=== PATIENT | female | born 1950 | race Caucasian/White ===

== ENCOUNTER → 2018-10-09 | Outpatient (CLI) | payer OTHER ==
--- NOTE | 2018-10-10 16:34 | P ---
[facility] [place] [address] PROCEDURE REPORT Name: NEDA BLAND Room #: REG [facility]#: [id number] Admission: 10/09/18 ������������������ Attend Phys: Tommy Bang MD Discharge: ������������������ Date of : 50 Report #: [id number] THIS REPORT FOR: //name// CC: Tommy Pastor MD OUTPATIENT UPPER ENDOSCOPY REPORT BRIEF HISTORY: The patient is a 67-year-old woman with chronic nausea and occasional vomiting. History is significant for use of hydrocodone 10/325 every 4 hours daily as well as diabetes, requiring insulin. She also has intermittent dysphagia, primarily for pills. PREOPERATIVE DIAGNOSES: Nausea and dysphagia. POSTOPERATIVE DIAGNOSES: 1. Diffuse gastritis with bile staining. 2. Small hiatus hernia. 3. Dysphagia for pills. MEDICATIONS: Deep sedation with propofol per Anesthesia. SPECIMEN: None. ESTIMATED BLOOD LOSS: None. PROCEDURE: EGD and Lozano dilation. FINDINGS: Prior to propofol sedation, procedure of upper endoscopy was discussed with the patient as well potential risks and its complications. She indicates she understands and desires to proceed. DESCRIPTION OF PROCEDURE: With the patient in the supine position, with her head raised about 30 degrees, the Olympus video endoscope was inserted in the cervical esophagus under direct vision without difficulty. Examination of this organ through its entire length revealed normal esophageal mucosa down the squamocolumnar junction. Squamocolumnar junction was inspected and noted to be unremarkable. Intermittently, a small 2-cm sliding-type hiatus hernia was seen. There was no evidence of Neil mucosa. She has had some dysphagia. There was no evidence of stricture or ring. The scope was advanced in the stomach, which was examined on end views as well as retroflexed views. There was a pattern of diffuse gastritis with moderate erythema in the antrum of the stomach. No ulcers or erosions were seen. There was diffuse bile staining. Upon retroflexion, no mass lesions were seen. The pylorus, duodenal bulb and postbulbar duodenal sweep were all inspected and noted to be unremarkable. There was no evidence of strictures. At that point, scope was slowly withdrawn [facility] [address] [place] [address] PROCEDURE REPORT Name: NEDA BLAND Room #: REG [facility].#: [id number] Admission: 10/09/18 ������������������ Attend Phys: Tommy Bagn MD Discharge: ������������������ Date of : 50 Report #: [id number] and careful circumferential views were obtained. It was noted she does have gastritis and biopsies in the past were negative for H. pylori and those were not repeated today. In addition, in view of her diabetes, there was no endoscopic evidence of gastroparesis with retained solids within the stomach. Scope was withdrawn. The patient tolerated the procedure well. Subsequently, she was dilated with passage of a 50-Pal[place] Lozano dilator. There was no resistance. CONDITION OF THE PATIENT UPON DISCHARGE: Following the procedure, the patient was drowsy and will be discharged home when fully ambulatory. INSTRUCTIONS TO THE PATIENT AND FAMILY AT THE TIME OF DISCHARGE: She has had chronic nausea. The major culprit is likely the hydrocodone, especially in view of her history of diabetes. She does get relief from Zofran. It is noted she is on a multitude of medications. The use of Zofran would be reasonable. If a prokinetic is thought to be necessary, erythromycin may be a choice. A transdermal scopolamine patch may be an option as well. It is noted she is on twice daily Nexium. She may attempt to reduce the Nexium to once daily and thereafter, if she does well, to an as-needed basis. She is to return for dilation of esophagus on an as-needed basis regarding dysphagia. ��������������������������������������������� <ELECTRONICALLY SIGNED> ���������������������������������������� By: Tommy Bang MD ��������������������������������������������� 10/10/18 1634 [id number] Tommy Bang MD /nt
== END | disposition home or self-care (01) ==
LOC: GI 08:23
DX: K29.70 Gastritis, unspecified, without bleeding (principal); K44.9 Diaphragmatic hernia without obstruction or gangrene; R13.19 Other dysphagia; E11.9 Type 2 diabetes mellitus without complications; Z79.4 Long term (current) use of insulin; Z79.891 Long term (current) use of opiate analgesic
CPT/HCPCS: 62110; 62900

== ENCOUNTER 2018-10-22 12:28 | Emergency (ER) | payer OTHER ==
[~2018-10-22] VITALS: Ht 162.6 cm; Wt 108.0 kg
[2018-10-22] MEDS ORDERED: BUSPIRONE HCL15 MG PO (13:15)
[2018-10-22] MEDS ORDERED: NORCO 10-325 T1 EACH PO (13:15)
[2018-10-22] MEDS ORDERED: SYNTHROID100 MC1 PO (13:15)
[2018-10-22] MEDS ORDERED: TRANSDERM-SCOP1 EACH TD (13:15)
[2018-10-22 14:37] LABS: URINE BILIRUBIN NEGATIVE (Negative); URINE BLOOD NEGATIVE (Negative); URINE CLARITY CLEAR; URINE COLOR YELLOW; URINE GLUCOSE-RANDOM* NEGATIVE (Negative); URINE KETONES NEGATIVE (Negative); URINE LEUKOCYTES-REFLEX NEGATIVE (Negative); URINE NITRITE-REFLEX NEGATIVE (Negative); URINE PROTEIN (DIPSTICK) NEGATIVE (Negative); URINE SPECIFIC GRAVITY 1.015 (1.005-1.035); URINE UROBILINOGEN 0.2 E.U./dl (0.2-1.0)
[2018-10-22 15:25] LABS: ABSOLUTE NEUTROPHILS 3.5 thou/uL (1.4-8.2); BASOPHILS 0.6 % (0.0-2.0); EOSINOPHILS 1.6 % (0.0-3.0); HEMATOCRIT 36.8 % (37.0-47.0); HEMOGLOBIN 11.8 gm/dL (12.0-15.0); LYMPHOCYTES 26.6 % (24.0-44.0); MCHC 32.2 g/dL (28.0-37.0); MONOCYTES 6.2 % (1.0-8.0); PLATELET COUNT 200 thou/uL (150-400); RBC 4.23 mil/uL (4.20-5.00); WBC 5.5 thou/uL (4.0-11.0)
[2018-10-22 15:38] LABS: ANION GAP 6 mmol/L (7-16); BUN 15 mg/dL (7-18); CALCIUM 9.3 mg/dL (8.5-10.1); CHLORIDE 103 mmol/L (98-107); CO2 29 mmol/L (21-32); CREATININE 0.7 mg/dL (0.6-1.0); GLUCOSE 117 mg/dL (74-106); POTASSIUM 3.6 mmol/L (3.5-5.1); SODIUM 138 mmol/L (136-145)
[2018-10-22 15:48] LABS: ALBUMIN 3.2 g/dL (3.4-5.0); LIPASE 63 U/L (73-393); SGOT 19 U/L (15-37); SGPT 25 U/L (30-65); TOTAL BILIRUBIN 0.5 mg/dL (<0.1-1.0); TOTAL PROTEIN 6.6 g/dL (6.4-8.2); TROPONIN-I <0.06 ng/mL (<0.06)
[2018-10-22] MEDS ORDERED: METRONIDAZOLE500 M4 PO (16:59)
[2018-10-22] MEDS ORDERED: CIPRO500 MG PO (16:59)
[2018-10-22 17:05] VITALS: BP 148/76
== END 2018-10-22 17:05 | disposition home or self-care (01) ==
LOC: ER 12:28
PROVIDERS: Physician Assistant
DX: R19.7 Diarrhea, unspecified (principal); R10.84 Generalized abdominal pain; R11.0 Nausea; E11.9 Type 2 diabetes mellitus without complications; M79.7 Fibromyalgia; I10 Essential (primary) hypertension; E78.00 Pure hypercholesterolemia, unspecified; Z98.51 Tubal ligation status; Z90.710 Acquired absence of both cervix and uterus; Z88.1 Allergy status to other antibiotic agents; Z79.899 Other long term (current) drug therapy; Z90.49 Acquired absence of other specified parts of digestive tract

== ENCOUNTER → 2018-12-26 | Outpatient (CLI) | payer OTHER ==
[~2018-12-26] MED LIST: ALLOPURINOL 10100 M3 PO; ASA81BEC PO; BUSPIRONE HCL15 MG PO; CARVEDILOL12.5 MG PO; CIPRO500 MG PO; DULERA 200 MCG/13 GM INH; ENALAPRIL MALEA20 MG PO; FISH OIL 1,001000 M3 PO; IPRAT-ALBUT 0.5-3 ML INH; LIPITOR40 MG PO; METRONIDAZOLE500 M4 PO; NEURONTIN600 MG PO; NEXIUM 40 MG CA40 M1 PO; NORCO 10-325 T1 EACH PO; PROAIR HFA8.5 GM INH; PROBIOTIC1 EAC7 PO; SERTRALINE HCL25 MG PO; SYNTHROID100 MC1 PO; TOUJEO SOL300 UNIT/1 SUBQ; TRANSDERM-SCOP1 EACH TD; TRIAMCINOLONE 080 G3 TOP; VITAMIN D31000 UNIT PO; ZYRTEC10 M5 PO
== END ==
LOC: BC 09:54 → ULTRA 09:54
DX: N63.20 Unspecified lump in the left breast, unspecified quadrant (principal); E04.1 Nontoxic single thyroid nodule

== ENCOUNTER 2019-01-13 16:14 | Emergency (ER) | payer OTHER ==
[~2019-01-13] VITALS: Ht 152.4 cm; Wt 109.3 kg
[~2019-01-13 16:14] MED LIST changes: -ALLOPURINOL 10100 M3 PO; -ASA81BEC PO; -CARVEDILOL12.5 MG PO; -DULERA 200 MCG/13 GM INH; -ENALAPRIL MALEA20 MG PO; -FISH OIL 1,001000 M3 PO; -IPRAT-ALBUT 0.5-3 ML INH; -LIPITOR40 MG PO; -NEURONTIN600 MG PO; -NEXIUM 40 MG CA40 M1 PO; -PROAIR HFA8.5 GM INH; -PROBIOTIC1 EAC7 PO; -SERTRALINE HCL25 MG PO; -TOUJEO SOL300 UNIT/1 SUBQ; -TRIAMCINOLONE 080 G3 TOP; -VITAMIN D31000 UNIT PO; -ZYRTEC10 M5 PO
[2019-01-13 17:04] LABS: URINE BLOOD NEGATIVE (Negative); URINE CLARITY CLEAR; URINE COLOR YELLOW; URINE GLUCOSE-RANDOM* NEGATIVE (Negative); URINE KETONES NEGATIVE (Negative); URINE LEUKOCYTES-REFLEX NEGATIVE (Negative); URINE NITRITE-REFLEX NEGATIVE (Negative); URINE PROTEIN (DIPSTICK) NEGATIVE (Negative); URINE SPECIFIC GRAVITY 1.025 (1.005-1.035); URINE UROBILINOGEN 0.2 E.U./dl (0.2-1.0)
[2019-01-13 17:06] LABS: ICTOTEST (BILI CONFIRMATORY) Negative (Negative); URINE BILIRUBIN NEGATIVE (Negative)
[2019-01-13] MEDS ORDERED: ASA81BEC PO (18:17)
[2019-01-13] MEDS ORDERED: CARVEDILOL12.5 MG PO (18:18)
[2019-01-13] MEDS ORDERED: NEXIUM 40 MG CA40 M1 PO (18:18)
[2019-01-13] MEDS ORDERED: ENALAPRIL MALEA20 MG PO (18:19)
[2019-01-13] MEDS ORDERED: NEURONTIN600 MG PO (18:19)
[2019-01-13] MEDS ORDERED: SERTRALINE HCL25 MG PO (18:20)
[2019-01-13] MEDS ORDERED: LIPITOR40 MG PO (18:22)
[2019-01-13] MEDS ORDERED: ALLOPURINOL 10100 M3 PO (18:22)
[2019-01-13] MEDS ORDERED: VITAMIN D31000 UNIT PO (18:23)
[2019-01-13] MEDS ORDERED: FISH OIL 1,001000 M3 PO (18:23)
[2019-01-13] MEDS ORDERED: PROBIOTIC1 EAC7 PO (18:24)
[2019-01-13] MEDS ORDERED: TOUJEO SOL300 UNIT/1 SUBQ (18:25)
[2019-01-13] MEDS ORDERED: TRIAMCINOLONE 080 G3 TOP (18:26)
[2019-01-13] MEDS ORDERED: PROAIR HFA8.5 GM INH ×2 (18:26→18:27)
[2019-01-13] MEDS ORDERED: DULERA 200 MCG/13 GM INH (18:27)
[2019-01-13] MEDS ORDERED: IPRAT-ALBUT 0.5-3 ML INH (18:28)
[2019-01-13] MEDS ORDERED: ZYRTEC10 M5 PO (18:29)
[2019-01-13 18:40] LABS: EOSINOPHILS 3.8 % (0.0-3.0); HEMATOCRIT 34.7 % (37.0-47.0); HEMOGLOBIN 11.2 gm/dL (12.0-15.0); MCH 28.8 pg (26.0-34.0); MCHC 32.4 g/dL (28.0-37.0); MCV 88.9 fL (80.0-100.0); MONOCYTES 7.3 % (1.0-8.0); PLATELET COUNT 156 thou/uL (150-400); POLYS 56.9 % (36.0-66.0); RDW 15.7 % (10.5-14.5); WBC 5.3 thou/uL (4.0-11.0)
[2019-01-13 18:49] LABS: CALCIUM 8.7 mg/dL (8.5-10.1); CREATININE 0.8 mg/dL (0.6-1.0); POTASSIUM 3.6 mmol/L (3.5-5.1)
[2019-01-13 18:55] LABS: ALBUMIN 3.3 g/dL (3.4-5.0); TOTAL BILIRUBIN 0.3 mg/dL (<0.1-1.0); TOTAL PROTEIN 6.4 g/dL (6.4-8.2)
[2019-01-13 20:27] VITALS: BP 133/65
== END 2019-01-13 20:28 | disposition home or self-care (01) ==
LOC: ER 16:14
PROVIDERS: Nurse Practitioner Family
DX: S80.211A Abrasion, right knee, initial encounter (principal); S80.212A Abrasion, left knee, initial encounter; R19.7 Diarrhea, unspecified; E11.9 Type 2 diabetes mellitus without complications; I10 Essential (primary) hypertension; E78.00 Pure hypercholesterolemia, unspecified; M79.7 Fibromyalgia; Z90.89 Acquired absence of other organs; Z90.49 Acquired absence of other specified parts of digestive tract; Z90.710 Acquired absence of both cervix and uterus; Z79.4 Long term (current) use of insulin; Z88.1 Allergy status to other antibiotic agents; X58.XXXA Exposure to other specified factors, initial encounter; Y92.89 Other specified places as the place of occurrence of the external cause; Y93.89 Activity, other specified; Y99.8 Other external cause status

== ENCOUNTER → 2019-03-15 | Outpatient (CLI) | payer OTHER ==
[~2019-03-15] MED LIST changes: +ALLOPURINOL 10100 M3 PO; +ASA81BEC PO; +CARVEDILOL12.5 MG PO; +DULERA 200 MCG/13 GM INH; +ENALAPRIL MALEA20 MG PO; +FISH OIL 1,001000 M3 PO; +IPRAT-ALBUT 0.5-3 ML INH; +LIPITOR40 MG PO; +NEURONTIN600 MG PO; +NEXIUM 40 MG CA40 M1 PO; +PROAIR HFA8.5 GM INH; +PROBIOTIC1 EAC7 PO; +SERTRALINE HCL25 MG PO; +TOUJEO SOL300 UNIT/1 SUBQ; +TRIAMCINOLONE 080 G3 TOP; +VITAMIN D31000 UNIT PO; +ZYRTEC10 M5 PO
== END ==
LOC: NUC 02-23 16:24
DX: M81.0 Age-related osteoporosis without current pathological fracture (principal); M85.89 Other specified disorders of bone density and structure, multiple sites; Z78.0 Asymptomatic menopausal state

== ENCOUNTER → 2019-05-31 | Outpatient (CLI) | payer OTHER | LOC: RAD 16:39 | DX: M41.84 Other forms of scoliosis, thoracic region (principal); M46.04 Spinal enthesopathy, thoracic region; M48.02 Spinal stenosis, cervical region; M25.78 Osteophyte, vertebrae ==

== ENCOUNTER 2019-06-20 14:38 | Emergency (ER) | payer OTHER ==
[~2019-06-20] VITALS: Ht 152.4 cm; Wt 106.6 kg
[2019-06-20] MEDS ORDERED: NEXIUM 40 MG CA40 M1 PO (15:27)
[2019-06-20] MEDS ORDERED: TOUJEO SOL300 UNIT/1 SUBQ (15:29)
[2019-06-20] MEDS ORDERED: TESSALON PERLE100 M1 PO (15:30)
[2019-06-20] MEDS ORDERED: DORYX MPC120 MG PO (15:30)
[2019-06-20 16:09] LABS: BASOPHILS 0.5 % (0.0-2.0); HEMATOCRIT 43.8 % (37.0-47.0); HEMOGLOBIN 14.2 gm/dL (12.0-15.0); LYMPHOCYTES 35.4 % (24.0-44.0); MCH 27.5 pg (26.0-34.0); MCHC 32.5 g/dL (28.0-37.0); MCV 84.5 fL (80.0-100.0); MONOCYTES 5.8 % (1.0-8.0); PLATELET COUNT 204 thou/uL (150-400); POLYS 55.3 % (36.0-66.0); RBC 5.18 mil/uL (4.20-5.00); RDW 16.5 % (10.5-14.5); WBC 5.4 thou/uL (4.0-11.0)
[2019-06-20 16:15] LABS: ANION GAP 2 mmol/L (7-16); BUN 21 mg/dL (7-18); CALCIUM 10.1 mg/dL (8.5-10.1); CHLORIDE 101 mmol/L (98-107); CO2 36 mmol/L (21-32); CREATININE 0.9 mg/dL (0.6-1.0); GLUCOSE 114 mg/dL (74-106); SODIUM 139 mmol/L (136-145)
[2019-06-20 16:25] LABS: DIRECT BILIRUBIN < 0.1 mg/dL (<0.1-0.2); SGOT 33 U/L (15-37); SGPT 37 U/L (30-65); TOTAL BILIRUBIN 0.5 mg/dL (<0.1-1.0); TOTAL PROTEIN 7.6 g/dL (6.4-8.2); TROPONIN-I <0.06 ng/mL (<0.06)
[2019-06-20] MEDS ORDERED: ELIQUIS5 M1 PO (18:20)
[2019-06-20 18:40] VITALS: BP 152/65
--- NOTE | 2019-06-21 09:03 | EKG ---
[facility] [place] [address] ELECTROCARDIOGRAM REPORT Name: NEDA BLAND Room #: DEP [facility]#: [id number] Admission: 06/20/19 Attend Phys: Discharge: 06/20/19 Date of : 50 Report #: [id number] THIS REPORT FOR: cc: Yossi Pastor MD, Neal A. MD Lundgren,Enzo Cochran MD [facility] THIS REPORT FOR: //name// [facility] ED Test Date: 2019-06-20 Test Time: 15:46:11 Pat Name: NEDA BLAND Department: Room: Gender: F Learning Support Specialist: [facility] : 1950 Requested By: Tiffany Parr Order Number: [id number] MD: Enzo Lloyd Measurements Intervals [place] Rate: 58 P: 67 SD: 150 QRS: 66 QRSD: 149 T: -55 QT: 464 QTc: 456 Interpretive Statements Sinus rhythm Right bundle branch block T wave abnormality, inferolateral leads No previous ECG available for comparison Electronically Signed On 06-21-2019 9:02:02 CDT by Enzo Lloyd [email or web address] <ELECTRONICALLY SIGNED> By: Enzo Lloyd MD, FACC 06/21/19 0902 [id number] [id number] Enzo Lloyd MD, [facility] /EPI
== END 2019-06-20 18:40 | disposition home or self-care (01) ==
LOC: ER 14:38
PROVIDERS: Emergency Medicine
DX: I26.99 Other pulmonary embolism without acute cor pulmonale (principal); I10 Essential (primary) hypertension; E11.9 Type 2 diabetes mellitus without complications; E78.00 Pure hypercholesterolemia, unspecified; M79.7 Fibromyalgia; Z90.49 Acquired absence of other specified parts of digestive tract; Z90.710 Acquired absence of both cervix and uterus; Z98.51 Tubal ligation status; Z88.1 Allergy status to other antibiotic agents

== ENCOUNTER → 2019-09-27 | Outpatient (CLI) | payer OTHER ==
[~2019-09-27] MED LIST changes: +DORYX MPC120 MG PO; +ELIQUIS5 M1 PO; +TESSALON PERLE100 M1 PO
== END ==
LOC: SJCVCIMAG 10:33
PROVIDERS: ATTEND Internal Medicine
DX: R94.31 Abnormal electrocardiogram [ECG] [EKG] (principal); I35.8 Other nonrheumatic aortic valve disorders; I11.9 Hypertensive heart disease without heart failure; R00.1 Bradycardia, unspecified; I45.10 Unspecified right bundle-branch block; E11.9 Type 2 diabetes mellitus without complications; I25.10 Atherosclerotic heart disease of native coronary artery without angina pectoris; Z95.1 Presence of aortocoronary bypass graft

== ENCOUNTER → 2020-04-15 | Outpatient (CLI) | payer OTHER | LOC: MRI 08:05 → ULTRA 08:05 | PROVIDERS: ATTEND Family Medicine | DX: M47.814 Spondylosis without myelopathy or radiculopathy, thoracic region (principal); M51.34 Other intervertebral disc degeneration, thoracic region; R10.13 Epigastric pain ==

== ENCOUNTER → 2020-05-20 | Outpatient (CLI) | payer OTHER | LOC: SJCVC 13:16 | PROVIDERS: ATTEND Internal Medicine | DX: R94.31 Abnormal electrocardiogram [ECG] [EKG] (principal); I45.10 Unspecified right bundle-branch block; I25.10 Atherosclerotic heart disease of native coronary artery without angina pectoris; I10 Essential (primary) hypertension; E78.5 Hyperlipidemia, unspecified; G47.33 Obstructive sleep apnea (adult) (pediatric); E11.9 Type 2 diabetes mellitus without complications; I65.23 Occlusion and stenosis of bilateral carotid arteries; I26.93 Single subsegmental thrombotic pulmonary embolism without acute cor pulmonale; M19.90 Unspecified osteoarthritis, unspecified site; E78.00 Pure hypercholesterolemia, unspecified; E03.9 Hypothyroidism, unspecified; K21.9 Gastro-esophageal reflux disease without esophagitis; E55.9 Vitamin D deficiency, unspecified; F41.9 Anxiety disorder, unspecified; Z79.4 Long term (current) use of insulin; Z79.899 Other long term (current) drug therapy; Z88.5 Allergy status to narcotic agent; Z88.1 Allergy status to other antibiotic agents; Z88.8 Allergy status to other drugs, medicaments and biological substances ==

== ENCOUNTER → 2020-05-22 | Outpatient (CLI) | payer OTHER | LOC: MRI 11:11 | PROVIDERS: ATTEND Family Medicine | DX: N28.1 Cyst of kidney, acquired (principal); K86.89 Other specified diseases of pancreas; K76.89 Other specified diseases of liver ==

== ENCOUNTER → 2020-10-02 | Outpatient (CLI) | payer OTHER | LOC: ULTRA 08:43 → LAB 08:43 → ULTRA 11:26 | PROVIDERS: ATTEND Family Medicine | DX: Z12.31 Encounter for screening mammogram for malignant neoplasm of breast (principal); K86.89 Other specified diseases of pancreas; K76.9 Liver disease, unspecified; N28.1 Cyst of kidney, acquired; E89.0 Postprocedural hypothyroidism; E04.2 Nontoxic multinodular goiter ==

== ENCOUNTER → 2021-03-03 | Outpatient (CLI) | payer OTHER | LOC: SJCVCIMAG 15:37 | PROVIDERS: ATTEND Internal Medicine | DX: I35.8 Other nonrheumatic aortic valve disorders (principal); I25.10 Atherosclerotic heart disease of native coronary artery without angina pectoris; I10 Essential (primary) hypertension ==

== ENCOUNTER → 2021-05-12 | Outpatient (CLI) | payer OTHER | LOC: SJCVC 11:28 | PROVIDERS: ATTEND Internal Medicine | DX: I45.10 Unspecified right bundle-branch block (principal); R94.31 Abnormal electrocardiogram [ECG] [EKG]; I25.10 Atherosclerotic heart disease of native coronary artery without angina pectoris; I11.0 Hypertensive heart disease with heart failure; I50.32 Chronic diastolic (congestive) heart failure; E78.5 Hyperlipidemia, unspecified; G47.33 Obstructive sleep apnea (adult) (pediatric); E11.9 Type 2 diabetes mellitus without complications; Z79.4 Long term (current) use of insulin; I65.23 Occlusion and stenosis of bilateral carotid arteries; I26.93 Single subsegmental thrombotic pulmonary embolism without acute cor pulmonale; E78.00 Pure hypercholesterolemia, unspecified; E03.9 Hypothyroidism, unspecified; K21.9 Gastro-esophageal reflux disease without esophagitis; Z79.82 Long term (current) use of aspirin; Z79.899 Other long term (current) drug therapy; Z90.710 Acquired absence of both cervix and uterus; Z98.890 Other specified postprocedural states; Z88.1 Allergy status to other antibiotic agents; Z88.5 Allergy status to narcotic agent; Z88.8 Allergy status to other drugs, medicaments and biological substances ==